=== PATIENT | male | born 1990 | race Caucasian/White ===

== ENCOUNTER → 2024-09-06 07:26 | Outpatient (CLI) | payer OTHER, SELFPAY ==
--- NOTE | 2024-09-06 07:29 | DI.RAD.S_ITS ---
PROCEDURE: XR LUMBAR SPINE MIN 4V INDICATIONS: BACK PAIN TECHNIQUE: 5 views of the lumbar spine were acquired, including bilateral oblique views. COMPARISON: None. FINDINGS: Bones: 5 nonrib-bearing vertebrae are present. Grade 1 anterolisthesis of L5 on S1 measures 0.5 cm. There is associated moderate disc height loss with adjacent endplate sclerosis and anterior osteophytosis. There is underwent normal bony alignment. No vertebral body compression fractures. No suspicious bony lesions. Soft tissues: Overlying bowel gas pattern is normal. No suspicious soft tissue calcifications. Oblique images: No pars defects. IMPRESSION: L5-S1 spondylosis and spondylolisthesis without evidence of acute osseous abnormality. Dictated by: Ruben Farmer M.D. on 09/07/2024 at 3:22 Approved by: Ruben Farmer M.D. on 09/07/2024 at 3:24
== END ==
PROVIDERS: PCP Preventive Medicine Aerospace Medicine; Referring Provider Physical Medicine & Rehabilitation; Visit Provider Physical Medicine & Rehabilitation
DX: M47.817 Spondylosis without myelopathy or radiculopathy, lumbosacral region (principal); M43.17 Spondylolisthesis, lumbosacral region; M54.9 Dorsalgia, unspecified
CPT/HCPCS: 72110

== ENCOUNTER 2024-09-30 10:00 | Outpatient (CLI) | payer OTHER, SELFPAY ==
[2024-09-30] VITALS (8 sets, daily range): BP systolic 113–146; BP diastolic 65–88; PULSE 76–86; RESP 12–18; O2SAT 95–99
[2024-09-30] MEDS: MIDAZOLAM 2 MG/2 ML VIAL IV (10:36)
[2024-09-30] MEDS: iopamidoL 15 ML VIAL 3 ML INJ (10:44)
[2024-09-30] MEDS: BUPIVACAINE 0.25% (PF) VIAL 2 ML INJ (10:44)
[2024-09-30] MEDS: DEXAMETHASONE 10 MG/ML VIAL INJ ×2 (10:45→10:47)
[2024-09-30] MEDS: BETAMETHASONE 30 MG/5 ML MDV 12 MG INJ (10:45)
--- NOTE | 2024-09-30 10:51 | P.PCN_ITS ---
Date/Time/Diagnoses Date of procedure: 09/30/24 Time of procedure: 10:51 Pre-procedure diagnosis: 1. HNP WITH RADICULAR FEATURES, 2. MULTILEVEL CENTRAL STENOSIS, Post-procedure diagnosis: same Procedure Notes Procedure: 1. FLUOROSCOPICALLY GUIDED CONTRAST CONTROLLED INTERLAMINAR EPIDURAL STEROID INJECTION - L5/S1 Indications: Jake is referred by Dr. Dominguez for treatment of Bilateral Foraminal Stenosis L>R LE symptoms. Physician: Deon Maldonado Total Fluoroscopy time (seconds): 6 Total sedation minutes: 12 Complications: none Procedure in detail & Post-procedure care: FINDINGS Multilevel Central Spinal Stenosis with Nerve Root Compression DESCRIPTION OF PROCEDURE Fluoroscopically guided, contrast-controlled L5/S1 translaminar epidural steroid injection. Following review of allergy and review of potential side effects and complications, including, but not necessarily limited to, infection, allergic reaction, local tissue breakdown, temporary as well as permanent nerve injury, paralysis, stroke and possible , the patient indicated that the patient understood and agreed to proceed. An informed consent document was signed by the patient, witnessed by a nurse, and placed in the patient's chart. Additionally, other treatment options including modalities, medications, and physical therapy were reviewed with the patient. After review of previous anaesthesic history and IV conscious sedation the patient was deemed safe to proceed with today?s procedure with IV conscious sedation as ASA class II designation. Safety time-out was performed to confirm patient ID, procedure to be performed and site of procedure. IV sedation was accomplished with a combination of 2mg of Versed administered by the RN after DO order, titrated to patient comfort during the course of the procedure while the patient remained responsive to all verbal commands. In the prone position, following sterile prep and drape of the lumbar region, the L5/S1 translaminar space was identified fluoroscopically. The skin was anesthetized via a 25-gauge, 1.5-inch needle with 1% lidocaine solution. At this point, a 22-gauge short bevel spinal needle was atraumatically introduced and advanced under fluoroscopic guidance into the region of the L5/S1 translaminar space. Depth was confirmed on lateral view. Radiological data, including multiple fluoroscopic views of the lumbar spine, reveal a spinal needle at the L5/S1 translaminar space. Lateral views then show placement of the needle in the epidural space. Subsequent views show contrast material flowing superiorly and inferiorly in the epidural space. No vascular or intrathecal uptake is observed. At this point, using loss of resistance technique with saline and air, the epidural space was entered. This was confirmed following negative aspiration with injection of approximately 1.5cc of Isovue 200, showing excellent epidural flow without vascular or intrathecal uptake. At this point, 1 cc of 1% lidocai ne solution combined with 4cc or 20mg of dexamethasone and 12mg of betamethasone was injected without incident. The patent tolerated the procedure without signs of symptoms of complications prior to transfer to the recovery area for further monitoring. The patient was then transferred to the recovery area where they were observed for an appropriate period of time after the injection. The patient reported a VAS score of 6 prior to the procedure and a post-procedure VAS of 0. POST OP INSTRUCTIONS The patient was provided a Pain Log to continue to record their response to the target-specific procedure prior to follow-up visit with their referring physician. Additionally, specific post-injection care instructions and a contact number to our office were provided if concerns arise regarding possible complications associated with the procedure are suspected.
== END 2024-09-30 11:11 | disposition home or self-care (01) ==
PROVIDERS: PCP Preventive Medicine Aerospace Medicine; Referring Provider Physical Medicine & Rehabilitation; Visit Provider Physical Medicine & Rehabilitation
DX: M51.17 Intervertebral disc disorders with radiculopathy, lumbosacral region (principal); M47.27 Other spondylosis with radiculopathy, lumbosacral region; M48.07 Spinal stenosis, lumbosacral region
CPT/HCPCS: 62323; 99152; J0702; J1100; J2250; J3490

== ENCOUNTER 2024-11-23 16:58 | Emergency (ER) | payer OTHER, SELFPAY ==
[2024-11-23 17:08] VITALS: BP 125/95; PULSE 81; RESP 16; TEMP 36.6; O2SAT 96; BMI 29.4
[2024-11-23 18:22] VITALS: BP 121/92; PULSE 78; RESP 16; O2SAT 100
--- NOTE | 2024-11-23 18:46 | ED_ITS ---
HPI - Back Pain/Injury <Jany Escobar PA-C - Last Filed: 11/23/24 18:52> General Chief Complaint: Back Pain/Injury Stated Complaint: back pain right leg and arm going numb Time Seen by Provider: 11/23/24 18:01 Source: patient History of Present Illness HPI Narrative: 34-year-old male with past medical history lumbar radiculopathy due to a L5-S1 disc herniation presents to the ED with an acute on chronic exacerbation of the lower back pain. Patient complains of right-sided lower back pain sciatica going down the right leg. No injuries, trauma. No saddle paresthesias, fever, chills, urinary hesitancy, urinary incontinence. No numbness, tingling, weakness. Walking normally. Patient has seen painter airbrush Dr. Maldonado for injections in September with minimal relief. Patient also had a surgical consultation for the disc herniation. Patient has been trying to stay active by walking and stretching. Patient states he occasionally takes Tylenol or ibuprofen, however avoids ibuprofen due to GERD exacerbation. Related Data Home Medications ?Medication ?Instructions ?Recorded ?Confirmed dextroamphetamine-amphetamine ER 1 cap PO QAM 09/06/24 11/24/24 20 mg 24hr capsule,extend release Previous Rx's ?Medication ?Instructions ?Recorded methylprednisolone 4 mg tablets in See Rx Instructions PO .COMPLEX 11/23/24 a dose pack (Medrol (Yury)) #21 ea celecoxib 200 mg capsule (Celebrex) 200 mg PO DAILY #3 0 caps 11/24/24 cyclobenzaprine 10 mg tablet 10 mg PO BID PRN muscle s pasm #60 11/24/24 tabs Allergies Allergy/AdvReac Type Severity Reaction Status Date / Time No Known Drug Allergies Allergy Unverified 11/24/24 11:43 Review of Systems <Jany Escobar PA-C - Last Filed: 11/23/24 18:52> Constitutional Constitutional: Denies chills, Denies fatigue, Denies fever(s), Denies frequent falls, Denies lethargy and Denies weakness Eyes Eyes: Denies change in vision, Denies eye discharge, Denies irritation and Deven es loss of vision ENT Ears, Nose, Mouth, and Throat: Denies change in voice, Denies dizziness, Denies neck pain, Denies sore throat and Denies throat swelling Cardiovascular Cardiovascular: Denies chest pain, Denies irregular heart rhythm, Denies lightheadedness, Denies palpitations, Denies dyspnea, Denies dyspnea on exertion and Denies orthopnea Respiratory Respiratory: Denies cough, Denies dyspnea, Denies dyspnea on exertion and Denies wheezing Gastrointestinal Gastrointestinal: Denies abdominal pain, Denies change in bowel habits, Denies diarrhea, Denies nausea and Denies vomiting Musculoskeletal Musculoskeletal: Reports back pain, Denies neck pain, Denies numbness and Reports radiating pain into limb Integumentary/Breasts Skin/Breast: Denies pruritus, Denies erythema, Denies rash and Denies wounds Neurologic Neurologic: Denies behavioral changes, Denies confusion, Denies dizziness, Denies frequent falls, Denies loss of vision, Denies numbness and Denies weakness Psychiatric Psychiatric: Denies anxiety, Denies behavioral changes, Denies confusion, Denies depression, Denies homicidal ideation and Denies suicidal ideation Endocrine Endocrine: Denies fatigue, Denies flushing and Denies palpitations Hematologic/Lymphatic Hematologic/Lymphatic: Denies easy bruising Allergic/Immunologic Allergic/Immunologic: Denies urticaria, Denies throat swelling and Denies wheezing Patient History <Jany Escobar PA-C - Last Filed: 11/23/24 18:52> Medical History Facet arthropathy, lumbar Herniated nucleus pulposus, L5-S1, left No pertinent family history Family History Family/Other No pertinent family history Exam <Jany Escobar PA-C - Last Filed: 11/23/24 18:52> Narrative Exam Narrative: Const General:?cooperative, healthy appearing and comfortable [facility] Head:?normal to inspection Ears:?hearing grossly normal bilaterally Nose:?external nose normal Face and sinus:?normal facial exam and sinuses nontender Mouth:?oral mucosae normal Throat:?posterior oropharynx normal Eyes General:?appearance normal, both eyes and all related structures Neck Neck:?normal visual inspection and no lymphadenopathy noted Resp Effort & Inspection:?normal respiratory effort Auscultation:?clear to auscultation bilaterally Cardio Rate:?regular rate Rhythm:?regular rhythm Musculoskeletal No midline tenderness to palpation. No paraspinal tenderness to palpation. Gait is normal. Skin intact and normal. Neurovascularly intact. Neuro General:?patient alert, patient awake and patient oriented x3 Initial Vital Signs Initial Vital Signs: Vital Signs Temperature 97.8 F 11/23/24 17:08 Pulse Rate 81 11/23/24 17:08 Respiratory Rate 16 11/23/24 17:08 Blood Pressure 125/95 H 11/23/24 17:08 Pulse Oximetry 96 11/23/24 17:08 Oxygen Delivery Method Room Air 11/23/24 17:08 <Kenton Argueta MD - Last Filed: 11/30/24 07:12> Initial Vital Signs Initial Vital Signs: Vital Signs Temperature 97.8 F 11/23/24 17:08 Pulse Rate 81 11/23/24 17:08 Respiratory Rate 16 11/23/24 17:08 Blood Pressure 125/95 H 11/23/24 17:08 Pulse Oximetry 96 11/23/24 17:08 Oxygen Delivery Method Room Air 11/23/24 17:08 Course <Jany Escobar PA-C - Last Filed: 11/23/24 18:52> Vital Signs Vital signs: Vital Signs - 8 hr 11/23/24 17:08 11/23/24 18:22 Temperature 97.8 F Pulse Rate 81 78 Respiratory Rate 16 16 Blood Pressure 125/95 H 121/92 H Pulse Oximetry 96 100 Oxygen Delivery Method Room Air Room Air <eKnton Argueta MD - Last Filed: 11/30/24 07:12> Vital Signs Vital signs: Vital Signs - 8 hr 11/23/24 17:08 11/23/24 18:22 Temperature 97.8 F Pulse Rate 81 78 Respiratory Rate 16 16 Blood Pressure 125/95 H 121/92 H Pulse Oximetry 96 100 Oxygen Delivery Method Room Air Room Air MDM - Back Pain/Injury <Jany Escobar PA-C - Last Filed: 11/23/24 18:52> MDM Narrative Medical decision making narrative: 34-year-old male with past medical history lumbar radiculopathy due to a L5-S1 disc herniation presents to the ED with an acute on chronic exacerbation of the lower back pain. History and physical exam is reassuring for no midline tenderness to palpation, paraspinal tenderness to palpation, new injury. No red flag symptoms concerning for a spinal emergency. Prescribed prednisone to address the inflammation and pain. Recommend follow-up with Dr. Maldonado and ortho for surgical consultation. ED return precautions were discussed with patient. Patient verbalized understanding. Medical records reviewed: Yes Discharge Plan Departure Patient Disposition: Home Clinical Impression: Chronic back pain Qualifiers: Back pain location: low back pain Back pain laterality: right Sciatica presence: with sciatica Sciatica laterality: sciatica of right side Qualified Code(s): M54.41 - Lumbago with sciatica, right side Instructions: DI for Back Pain With Sciatica Activity Restrictions/Additional Instructions: You were evaluated in the ED today for an acute exacerbation of your chronic back pain. You are being prescribed prednisone to take for the next few days to reduce the inflammation and pain. You may also take Tylenol, ibuprofen and apply lidocaine patches. It is recommended that you follow-up with Dr. Maldonado from pain management as well as your PCP for further evaluation. It is also re commended that you consult with ortho for further evaluation. Return to the ED if you have worsening symptoms. Prescriptions: New methylprednisolone [Medrol (Yury)] 4 mg tablets,dose pack See Rx Instructions .ROUTE .COMPLEX Qty: 21 0RF Rx Instructions: orally per package directions No Action dextroamphetamine-amphetamine 20 mg capsule,extended release 24hr 1 cap PO QAM celecoxib [Celebrex] 200 mg capsule 200 mg PO DAILY Qty: 30 2RF cyclobenzaprine 10 mg tablet 10 mg PO BID PRN (Reason: muscle spasm) Qty: 60 1RF Referrals: Mahendra Dominguez DO [Primary Care Provider, Medical] Stand Alone Forms: Patient Portal/API ED Sign-out <Kenton Argueta MD - Last Filed: 11/30/24 07:12> Cosign ED Attending [facility] Attestation: I was immediately available in the department for consultation. ?This documentation has been reviewed and I agree with assessment and plan. Supervised by Kenton Argueta MD
== END 2024-11-23 18:23 | disposition home or self-care (01) ==
PROVIDERS: Emergency Provider Student in an Organized Health Care Education/Training Program; PCP Preventive Medicine Aerospace Medicine
DX: M54.41 Lumbago with sciatica, right side (principal)
CPT/HCPCS: 99281

== ENCOUNTER 2024-11-30 11:58 | Outpatient (CLI) | payer OTHER, SELFPAY ==
[2024-11-30] VITALS (9 sets, daily range): BP systolic 129–154; BP diastolic 63–92; PULSE 73–90; RESP 14–16; TEMP 36.3; O2SAT 96–99
[2024-11-30] MEDS: MIDAZOLAM 2 MG/2 ML VIAL IV ×2 (14:04→14:09)
[2024-11-30] MEDS: BUPIVACAINE 0.5% (PF) 10 ML VIAL 5 ML INJ (14:11)
[2024-11-30] MEDS: iopamidoL 15 ML VIAL 3 ML INJ (14:11)
[2024-11-30] MEDS: LIDOCAINE 1% 20 ML 5 ML INJ (14:12)
--- NOTE | 2024-11-30 14:21 | PM.PROC.IR.1 ---
Date/Time/Diagnoses Date of procedure: 11/30/24 Time of procedure: 14:21 Pre-procedure diagnosis: 1. FACET ARTHROPATHY Post-procedure diagnosis: same Procedure Notes Procedure: 1. BILATERAL- L4, L5 and S1 DIAGNOSTIC MB BLOCKS with LA Anesthetic Indications: Jake is referred for treatment of Bilateral Axial LBP. Physician: Deon Maldonado Total Fluoroscopy time (seconds): 11 Total sedation minutes: 12 Complications: none Procedure in detail & Post-procedure care: DESCRIPTION OF PROCEDURE Fluoroscopically guided, contrast-controlled bilateral L4, L5 and S1 medial branch blocks with 0.5cc of 0.5% Marcaine. Following review of allergy and review of potential side effects and complications, including, but not necessarily limited to, infection, allergic reaction, local tissue breakdown, nerve injury, paralysis, stroke and possible , the patient indicated that the patient understood and agreed to proceed. An informed consent document was signed by the patient, witnessed by a nurse, and placed in the patient's chart. After review of previous anaesthesic history and IV conscious sedation the patient was deemed safe to proceed with today's procedure with IV conscious sedation as ASA class II designation. Safety time-out was performed to confirm patient ID, procedure to be performed and site of procedure. IV sedation was accomplished with a combination of 4mg of Versed was administered by the RN after DO order, titrated to patient comfort during the course of the procedure while the patient remained responsive to all verbal commands In the prone position, following sterile prep and drape of the lumbar region, the right L4, L5 and S1 anatomical location of the medial branch of the dorsal ramus was identified fluoroscopically. Subsequently an anesthetic skin wheal using 1% lidocaine solution was initiated at each of the anatomical spots. Subsequently then a 22-gauge 3.5-inch spinal needle was atraumatically introduced and advanced under fluoroscopic guidance at each of the corresponding sites at the right L4, L5 and S1 MB. After negative aspiration, 0.2cc of Isovue 200 was injected, confirming placement without vascular or intrathecal uptake. Subsequently then 0.5cc of 0.5% Marcaine solution was injected at each of the corresponding sites at the right L4, L5 and S1 medial branch locations. The identical procedure was replicated on the left. The patient tolerated the procedure well without signs or symptoms of complications prior to transfer to the recovery area continued monitoring without incident. Post-procedure, the patient was monitored initiating provocative activities to measure the amount of relief from block of the facetogenic pain. The patient reported a VAS of 7 prior to the procedure and a post-procedure VAS of 1. It has been a pleasure to assist in the diagnostic and therapeutic care of your patient. POST OP INSTRUCTIONS The patient was provided with a Pain Log to complete over the next several hours and subsequent days prior to the patient's follow up with the ordering physician. If the patient has senior c software developer relief to the solution applied, then they may be a candidate for medial branch rhizotomy. The patient is aware, was provided, once again, with a Pain Log and will follow up with the referring physician for review and clinical correlation
== END 2024-11-30 15:00 | disposition home or self-care (01) ==
LOC: RAD 11:58
PROVIDERS: Referring Provider Physical Medicine & Rehabilitation; Visit Provider Physical Medicine & Rehabilitation
DX: M47.816 Spondylosis without myelopathy or radiculopathy, lumbar region (principal); M47.817 Spondylosis without myelopathy or radiculopathy, lumbosacral region
CPT/HCPCS: 64493; 64494; 99152; J2250